=== PATIENT | male | born 1985 | race Caucasian/White ===

== ENCOUNTER 2018-04-01 17:54 | Emergency (ER) | payer OTHER ==
[2018-04-01] MEDS: IBUPROFEN 800 MG TAB PO (19:40)
== END 2018-04-01 19:49 | disposition home or self-care (01) ==
LOC: E/R 17:54
DX: S13.4XXA Sprain of ligaments of cervical spine, initial encounter (principal); V89.2XXA Person injured in unspecified motor-vehicle accident, traffic, initial encounter
CPT/HCPCS: 99282; Z7502